=== PATIENT | male | born 1960 | race Caucasian/White ===

== ENCOUNTER 2019-03-31 07:11 | Day surgery (SDC) | payer BC, OTHER ==
[2019-03-16 14:09] VITALS: BMI 38.6
[2019-03-31] MEDS ORDERED: BUPIVACAINE HCL/PF 0.5% (5MG/ML) 10 ML VIAL ONE (08:50)
[2019-03-31] MEDS ORDERED: BACITRACIN 15 GM TUBE TOPICAL OINTMENT ONE (08:50)
[2019-03-31] MEDS ORDERED: MIDAZOLAM HCL 2 MG/2 ML SINGLE DOSE VIAL ONE ×2 (09:32→09:44)
[2019-03-31] MEDS ORDERED: ceFAZolin SODIUM 1 GM VIAL IVPB ONE (09:47)
[2019-03-31] MEDS ORDERED: BUPIVACAINE HCL/PF (5 MG/ML) 30 ML VIAL IJ ONE ×2 (09:50)
[2019-03-31] MEDS ORDERED: ONDANSETRON 4 MG/2 ML VIAL IVPUSH PRN (10:21)
[2019-03-31] MEDS ORDERED: PROMETHAZINE HCL 25 MG/1 ML VIAL IVPUSH PRN (10:21)
[2019-03-31] MEDS ORDERED: oxyCODONE HCL 5 MG TABLET PO PRN (10:21)
[2019-03-31] MEDS ORDERED: ELECTROLYTE-148 SOLN 1,000 ML IV SCH (10:30)
--- NOTE | 2019-03-31 10:32 | OP ---
Operative Note - Note: Pre-Operative Diagnosis: Phimosis Operation: Circumscision Findings: Phimosis scar tissue Post-Operative Diagnosis: Same as Pre-op Surgeon: Fuentes Senior Anesthesia: Spinal Specimens Removed: foreskin Operative Report Dictated: Yes
[2019-03-31 12:00] VITALS: TEMP 97.5
--- NOTE | 2019-03-31 14:12 | OP ---
DATE OF OPERATION: 03/31/2019 PREOPERATIVE DIAGNOSIS: Phimosis. POSTOPERATIVE DIAGNOSIS: Phimosis. PROCEDURE: Circumcision. HISTORY: This is a 59-year-old gentleman with long history of scrotal skin irritation, found to have a relatively severe phimosis. Discussing treatment options, the patient elected to undergo the above-stated procedure. Risks and benefits of treatment including, but not limited to, infection, bleeding, re-operation, scar tissue, and penile curvature were discussed with the patient. All questions were answered. BRIEF OPERATIVE NOTE: Patient brought in the operating room, placed in supine position. Spinal anesthetic was then administered. Patient was then prepped and draped in standard sterile fashion after a timeout was performed. At this time, approximately 10 mL of a local lidocaine block was given circumferentially at the base of the penis as well as a penile base block. At this time, the foreskin was removed using sharp dissection. There was a moderate degree of scar tissue. The skin edges were freshened. Using 3-0 interrupted suture circumferentially, skin was approximated without tension quite easily. A Vaseline dressing was then applied. There was no evidence of bleeding throughout the procedure. Patient brought to recovery room in stable and satisfactory condition. Bry [id number]
[2019-03-31 15:15] VITALS: BP 129/70; PULSE 69
--- NOTE | 2019-04-01 17:23 | PATH ---
Surgical Pathology Report Patient Name: ANITA GOMEZ [facility]. Rec. #: [id number] /Age/Gender: 1960 (Age: 59) / M Account: [id number] Location: [facility] SURGICAL Taken: 03/31/2019 Received: 03/31/2019 Reported: 04/01/2019 Physicians: Amish Guevara M.D. Specimen(s) Received FORESKIN Clinical History Phimosis Final Diagnosis FORESKIN NUMBER RESECTION: SEGMENT OF FORESKIN WITH PARAKERATOSIS, FOCAL EROSION, MODERATE TO SEVERE ACUTE AND CHRONIC INFLAMMATION. Electronically Signed Km To M.D. Gross Description Received in formalin labeled "phimosis," is a 5.0 x 4.4 x 0.5 cm [place]-brown portion of wrinkled skin, consistent with foreskin. A automobile rental representative section is submitted in one cassette. /03/31/201903/31/2019
== END 2019-03-31 15:30 | disposition home or self-care (01) ==
LOC: JASU-SURG 07:11
PROVIDERS: ATTEND Urology
PROC: 0VTTXZZ Resection of Prepuce, External Approach (ICD-10-PCS; principal; 2019-03-31 09:00)
DX: N47.1 Phimosis (principal); I10 Essential (primary) hypertension; E11.9 Type 2 diabetes mellitus without complications
CPT/HCPCS: 82962; 88304-TC; 94760